=== PATIENT | female | born 1995 | race Two or more races ===

== ENCOUNTER 2017-06-06 13:23 | Emergency (ER) | payer OTHER ==
[~2017-06-06] VITALS: Ht 154.9 cm; Wt 82.0 kg
[2017-06-06 13:25] VITALS: Ht 154.9 cm; Wt 82.0 kg
[2017-06-06] MEDS ORDERED: KETOROLAC 30 MG INJ IV STA (13:57)
[2017-06-06] MEDS ORDERED: morphine 4 MG/ML VIAL IV STA (13:57)
[2017-06-06] MEDS ORDERED: SOD CHLORIDE 0.9% 1,000 ML IV STA (13:57)
[2017-06-06] MEDS ORDERED: ONDANSETRON 4 MG INJ IV STA (13:57)
--- NOTE | 2017-06-06 14:02 | ERD ---
ER Documentation Chief Complaint Date/Time DATE: 06/06/17 TIME: 13:59 Chief Complaint 8/10 left side pelvic pain x 1 week denies VB HPI This is a 21-year-old female with a past medical history of a left ovarian cyst diagnosed 4 months ago. She presents to the emergency department today complaining of persistent left-sided lower pelvic pain for the past 2 weeks. She indicates that she has had a tactile fever with shaking and chills. She is felt nauseous. She went 1 week ago to her primary care physician and was given Tylenol 3 with codeine and Naprosyn. Since that time she states she has not had a bowel movement for the past 48 hours. She states her last menstrual period was May 10 and she is very regular and her menstrual cycles with no menorrhagia or metrorrhagia. She is experience any frequency urgency and dysuria with no abnormal urethral discharge. She is currently sexually active with one person being her boyfriend for the past 5 years and denies any STD exposure. She had a test performed one week ago which was normal. She denies any morning sickness. She denies a headache or swelling of her lower extremities and no shortness of breath at rest or exertion peer she states the pain is a cramping like sensation and does radiate to the left flank region. The pain is 8 out of 10 in intensity and she indicates that the analgesic medication prescribed to her has not improved her symptoms. ROS All systems reviewed and are negative except as per history of present illness. Medications Home Meds Active Scripts Cephalexin* (Keflex*) 500 Mg Capsule, 500 MG PO Q8 for 10 Days, #30 CAP Prov:KIMBERLYN MCKEONA 06/06/17 Allergies Allergies: Coded Allergies: No Known Allergies (Unverified Allergy, Unknown, 06/06/17) PMhx/Soc History of Surgery: No (LUMBAR PUNCTURE) Anesthesia Reaction: No Hx Neurological Disorder: Yes (MIGRAINES) Hx Respiratory Disorders: No Hx Cardiac Disorders: No Hx Psychiatric Problems: No Hx Miscellaneous Medical Probl: No Hx Alcohol Use: No Hx Substance Use: No Hx Tobacco Use: No Physical Exam Vitals Vital Signs Date Time Temp Pulse Resp B/P Pulse Ox O2 Delivery O2 Flow Rate FiO2 06/06/17 13:25 98.2 81 16 107/69 99 Physical Exam Constitutional:Well-developed. Well-nourished. HEENT:Normocephalic. Atraumatic.Pupils were equal round reactive to light. Moist mucous membranes.No tonsillar exudates. Neck: No nuchal rigidity. No lymphadenopathy. No posterior cervical spine tenderness or step-offs. Respiratory: Not using accessory muscles of respiration.Lungs were clear to auscultation bilaterally. No rhonchi. No rales. No wheezing. Cardiovascular: Regular rate regular rhythm.No murmurs. No rubs were appreciated.S1, S2 normal. Distal pulses are palpable 2+ bilaterally. GI: Abdomen was soft. Tenderness in the left pelvic region. Non Distended. No pulsatile abdominal masses or bruits. No rebound. No guarding. Bowel sounds were present and normal. : Pelvic exam was performed by myself and the patient denied a female nurse happened to be present. Left adnexal tenderness with no adnexal masses. Cervix was closed nonfriable with no gross blood present within the vaginal no tenderness in the right adnexal region and no right adnexal masses. No endocervical discharge. Muscle skeletal: Full range of motion of both the upper and lower extremities bilaterally.Normal muscle tone.No assymetrical calf tenderness or swelling. Skin: No petechia, no purpura. No lesions on the palms or the soles of the feet. No maculopapular rash. NEURO: Patient was alert, awake, orientated x3.No facial droop. Gait observed and normal with no ataxia.Speech had regular rate and rhythm. No focal neurological deficits. Result Diagram: 06/06/17 1408 06/06/17 1408 Results 24 hrs Laboratory Tests Test 06/06/17 14:08 White Blood Count 6.610^3/ul Red Blood Count 4.7310^6/ul Hemoglobin 13.4g/dl Hematocrit 39.9% Mean Corpuscular Volume 84.4fl Mean Corpuscular Hemoglobin 28.3pg Mean Corpuscular Hemoglobin Concent 33.6g/dl Red Cell Distribution Width 13.5% Platelet Count 18068^3/UL Mean Platelet Volume 10.4fl Neutrophils % 65.0% Lymphocytes % 27.5% Monocytes % 5.6% Eosinophils % 1.1% Basophils % 0.5% Nucleated Red Blood Cells % 0.0/100WBC Neutrophils # 4.310^3/ul Lymphocytes # 1.810^3/ul Monocytes # 0.410^3/ul Eosinophils # 0.110^3/ul Basophils # 0.010^3/ul Nucleated Red Blood Cells # 0.010^3/ul Prothrombin Time 12.2Sec Prothrombin Time Ratio 1.0 INR International Normalized Ratio 0.91 Activated Partial Thromboplast Time 28.7Sec Urine Color YELLOW Urine Clarity CLOUDY Urine pH 5.0 Urine Specific [place] 1.021 Urine Ketones NEGATIVEmg/dL Urine Nitrite NEGATIVEmg/dL Urine Bilirubin NEGATIVEmg/dL Urine Urobilinogen NEGATIVEmg/dL Urine Leukocyte Esterase 3+Rod/ul Urine Microscopic RBC 3/HPF Urine Microscopic WBC 26/HPF Urine Squamous Epithelial Cells MODERATE/HPF Urine Bacteria FEW/HPF Urine Mucus FEW/HPF Urine Hemoglobin 1+mg/dL Urine Glucose NEGATIVEmg/dL Urine Total Protein NEGATIVEmg/dl Sodium Level 144mmol/L Potassium Level 3.9mmol/L Chloride Level 104mmol/L Carbon Dioxide Level 26mmol/L Anion Gap 18 Blood Urea Nitrogen 12mg/dl Creatinine 0.85mg/dl Glucose Level 97mg/dl Calcium Level 9.7mg/dl Total Bilirubin 0.2mg/dl Direct Bilirubin 0.00mg/dl Indirect Bilirubin 0.2mg/dl Aspartate Amino Transf (AST/SGOT) 17IU/L Alanine Aminotransferase (ALT/SGPT) 29IU/L Alkaline Phosphatase 61IU/L Total Protein 7.6g/dl Albumin 4.9g/dl Globulin 2.70g/dl Albumin/Globulin Ratio 1.81 Serum HCG, Qualitative NEGATIVE Current Medications Medications (Trade) Dose Ordered Sig/Tia Route PRN Reason Start Time Stop Time Status Last Admin Dose Admin Sodium Chloride (NS) 1,000 ml @ 1,000 mls/hr Q1H STAT IV 06/06/17 13:57 06/06/17 14:56 DC 06/06/17 14:17 Morphine Sulfate (morphine) 4 mg ONCE STAT IV 06/06/17 13:57 06/06/17 13:59 DC 06/06/17 14:17 Ketorolac Tromethamine (Toradol) 30 mg ONCE STAT IV 06/06/17 13:57 06/06/17 13:59 DC 06/06/17 14:17 Ondansetron HCl 4 mg 4 mg ONCE STAT IV 06/06/17 13:57 06/06/17 13:59 DC 7/14/17 14:17 Cefazolin Sodium (Ancef 1 Gm/50 ml (Pmx)) 50 ml @ 100 mls/hr ONCE ONCE IVPB 06/06/17 15:00 06/06/17 15:29 DC 06/06/17 15:06 Procedures/MDM This patient presented to the emergency department with pelvic pain. Her urine test was negative. The patient and IV access established by nursing staff and was given intravenous morphine and Zofran for analgesic control as well as Toradol. Her pain completely resolved. Given that she has a history of ovarian cyst I did feel is necessary to obtain a pelvic ultrasound reviewed by both myself and the radiologist which showed no evidence of ectopic , ovarian torsion or ruptured ovarian cyst. I did feel that the patient's symptoms were likely result of pyelonephritis. She received IV Ancef in the emergency department after urine culture was obtained. She stated she felt comfortable being discharged home and she was able to tolerate oral intakes. Therefore she will be sent home with a prescription of Keflex and was instructed to continue to take the Naprosyn if needed for analgesic control. The patient was discharged home in fair condition. They were instructed to return to the emergency department at any time if there was any worsening of their condition. The patient stated they would follow up with their PCP in the next 24-48 hours to initiate a suitable medication regimen under the care of their PCP as well as to allow their PCP to monitor any drug reactions. The patient was discharged home with prescriptions after they gave informed consent to the new medication. They were also fully informed by myself on the adverse effects and adverse drug interactions in order to provide adequate safeguards to prevent possible adverse reactions to medications. Departure Diagnosis: Primary Impression: Pyelonephritis Condition: Fair OMAR MCKEON Jun 06, 2017 14:02
[2017-06-06 14:20] LABS: ADD SCAN DIFF NO
[2017-06-06 14:24] LABS: BASOPHILS % 0.5 % (0.0-2.0); EOSINOPHILS # 0.1 10^3/ul (0.0-0.5); EOSINOPHILS % 1.1 % (0.0-7.0); HEMATOCRIT 39.9 % (37.0-47.0); HEMOGLOBIN 13.4 g/dl (12.0-16.0); LYMPHOCYTES # 1.8 10^3/ul (0.8-2.9); LYMPHOCYTES % 27.5 % (15.0-51.0); MEAN CORPUSCULAR HEMOGLOBIN 28.3 pg (29.0-33.0); MEAN CORPUSCULAR HGB CONC 33.6 g/dl (32.0-37.0); MEAN CORPUSCULAR VOLUME 84.4 fl (82.0-101.0); MEAN PLATELET VOLUME 10.4 fl (7.4-10.4); MONOCYTE # 0.4 10^3/ul (0.3-0.9); MONOCYTES % 5.6 % (0.0-11.0); NEUTROPHIL # 4.3 10^3/ul (1.6-7.5); PLATELET COUNT 250 10^3/UL (140-415); RED BLOOD COUNT 4.73 10^6/ul (4.20-5.40); RED CELL DISTRIBUTION WIDTH 13.5 % (11.5-14.5); WHITE BLOOD COUNT 6.6 10^3/ul (4.8-10.8)
[2017-06-06 14:30] LABS: ADD UMIC YES; UR ASCORBIC ACID NEGATIVE (NEGATIVE); UR BACTERIA FEW /HPF (NONE SEEN); UR BILIRUBIN (Dip) NEGATIVE (NEGATIVE); UR BLOOD (Dip) 1+ mg/dL (NEGATIVE); UR CLARITY CLOUDY (CLEAR); UR COLOR YELLOW (YELLOW); UR GLUCOSE (Dip) NEGATIVE (NEGATIVE); UR KETONES (Dip) NEGATIVE (NEGATIVE); UR LEUKOCYTE ESTERASE (Dip) 3+ Leu/ul (NEGATIVE); UR MUCUS FEW /HPF (NONE SEEN); UR NITRITE (Dip) NEGATIVE (NEGATIVE); UR RBC 3 /HPF (0-5); UR SPECIFIC GRAVITY (Dip) 1.021 (1.003-1.030); UR SQUAMOUS EPITHELIAL CELL MODERATE /HPF (FEW); UR TOTAL PROTEIN (Dip) NEGATIVE (NEGATIVE); UR UROBILINOGEN (Dip) NEGATIVE (NEGATIVE)
[2017-06-06 14:39] LABS: INR 0.91; PROTIME 12.2 Sec (12.2-14.2)
[2017-06-06 14:40] LABS: PARTIAL THROMBOPLASTIN TIME 28.7 Sec (25.0-35.0)
[2017-06-06 14:47] LABS: ALBUMIN 4.9 g/dl (3.3-4.9); ALBUMIN/GLOBULIN RATIO 1.81; BILIRUBIN,INDIRECT 0.2 mg/dl (0-1.1); BILIRUBIN,TOTAL 0.2 mg/dl (0.2-1.3); CALCIUM 9.7 mg/dl (8.4-10.2); CREATININE 0.85 mg/dl (0.44-1.00); POTASSIUM 3.9 mmol/L (3.5-5.1); TOTAL PROTEIN 7.6 g/dl (6.1-8.1)
[2017-06-06] MEDS ORDERED: CEFAZOLIN 1 GM/50 ML (PMX) 50 ML IVPB ONE (15:00)
--- NOTE | 2017-06-06 15:13 | RADRPT ---
PROCEDURE: US Pelvis. CLINICAL INDICATION: Pelvic pain TECHNIQUE: Multiple sonographic images of the pelvis were obtained utilizing a transabdominal and endovaginal technique. The images were reviewed on a PACS workstation. COMPARISON: None. FINDINGS: The uterus is visualized and measures 9.0 x 4.7 x 6.2 cm. The endometrial echo complex measures 11 m m thickness. No uterine masses are identified. The right ovary measures 4.1 x 1.9 x 2.3 cm . The left ovary measures 2.9 x 1.3 x 1.5 cm. A 1.3 cm simple cyst is seen on the right ovary. The ovaries demonstrate normal vascularity. Small amount of free fluid is identified in the right adnexa. IMPRESSION: 1.3 cm simple cyst on the right ovary. This likely reflects a prominent follicle or physiologic cys t. Small amount of nonspecific free fluid in the right adnexa. This could be physiologic. If further characterization of the organs of the pelvis is needed MRI should be considered. RPTAT: AA .Aguila Charlton MD, MD Date Time Electronically viewed and signed by .Aguila Charlton MD, MD on 06/06/2017 15:13 .P/
[2017-06-06] MEDS ORDERED: CEPH-443 PO (15:48)
[2017-06-06 16:03] VITALS: BP 112/59; PULSE 68; RESP 16; TEMP 98.3
== END 2017-06-06 16:00 | disposition home or self-care (01) ==
LOC: FTE 13:23
DX: N12 Tubulo-interstitial nephritis, not specified as acute or chronic (principal)
CPT/HCPCS: 36415; 76830; 76856; 80053; 81001; 84703; 85025; 85610; 85730; 87086; 96374; 96375; J1885; J2270; J2405; J7030; Z7502